=== PATIENT | female | born 1990 | race Caucasian/White ===

== ENCOUNTER 2016-07-21 13:10 | Emergency (ER) ==
[2016-07-21] MEDS ORDERED: PROTONIX IV ONE (13:20)
[2016-07-21] MEDS ORDERED: SODIUM CHLORIDE 0.9% INJ ONE (13:20)
[2016-07-21] MEDS ORDERED: NS 1,000 ML IV PRN (13:20)
[2016-07-21] MEDS ORDERED: NS 1,000 ML IV ONE (13:20)
[2016-07-21] MEDS ORDERED: ZOFRAN IV ONE (13:20)
--- NOTE | 2016-07-21 13:49 | PROVIDER DOCUMENTATION ---
HPI-Abdominal Pain/GI Problem <Erin Jordan X - Last Filed: 07/21/16 17:18> - General Source: patient, family - History of Present Illness-ABD Abdominal Pain Onset Location: reports: epigastric, periumbilical Quality of Pain: reports: aching Severity in ED: reports: moderate Onset/Duration: reports: other (1mo) Timing: reports: getting worse Rectal Bleeding: reports: bright red blood on paper, blood streaks on stool Rectal Pain: reports: none Emesis Description: reports: none Bruising or Bleeding Gums?: No Similar Symptoms Previously?: Yes Recently seen or treated by another doctor?: No <David Pastrana - Last Filed: 07/21/16 17:57> - General Chief Complaint: Vomiting Blood Stated Complaint: IVS-BLOOD IN STOOL Time Seen by Provider: 07/21/16 13:20 Allergies/Adverse Reactions: Patient Allergies Allergy/AdvReac Type Severity Reaction Status Date / Time ciprofloxacin [From Cipro] Allergy Intermediate RASH Verified 03/17/13 11:31 ciprofloxacin HCl * Allergy Intermediate RASH Verified 03/17/13 11:31 [From Cipro] ondansetron HCl * Allergy Intermediate RASH Verified 03/17/13 11:31 [From Zofran] iodine Allergy HIVES Verified 04/13/12 19:45 Home Medications: Hydrochlorothiazide 25 mg PO DAILY 04/13/12 Meloxicam [Mobic] 10 mg PO DAILY 04/13/12 Sertraline [Zoloft] 25 mg PO DAILY 04/13/12 Zolpidem [Ambien] 10 mg PO QHS 04/13/12 - History of Present Illness-ABD Nature of Presenting Problems: Diagnosed with IBS and Prolapsed colon in 2011 reports been having rectal bleeding and vomiting blood after eating x 1 month worsening past 1 week. Reports bright red and teaspoon full in vomit. Reports abd pain from epigastric to peribumbilical. (David Pastrana) Review of Systems - Adult - REVIEW OF SYSTEMS - ADULT Constitutional: denies: chills, fever, fatique Eyes: reports: no symptoms reported Ears, Nose, Mouth & Throat: reports: no symptoms reported Cardiovascular: denies: chest pain, irregular heart rate, orthopnea, syncope Respiratory: reports: no symptoms reported Gastrointestinal: reports: abdominal pain, hematemesis, rectal bleeding. denies : difficulty swallowing, frequent heartburn, nausea, vomiting Genitourinary: reports: no symptoms reported Musculoskeletal: reports: no symptoms reported Integumentary: reports: no symptoms reported Neurological: reports: no symptoms reported Psychiatric: reports: no symptoms reported Endocrine: reports: no symptoms reported Hematologic/Lymphatic: reports: no symptoms reported Allergic/Immunologic: reports: no symptoms reported All Other Systems: Reviewed and Negative <David Pastrana - Last Filed: 07/21/16 17:57> Past History - Adult - PAST MEDICAL HISTORY-ADULT Review of Records: reports: Nursing Assessment Review Major Childhood Illnesses: reports: denies history Cardiovascular: reports: HTN Respiratory: reports: asthma Gastrointestinal: reports: IBS, other (prolapse colon) - IMMUNIZATION STATUS Childhood Immunizations: See Nurse Assessment Flu Vaccine: See Nurse Assessment - FAMILY HISTORY Family History: reviewed, not pertinent - SOCIAL HISTORY Smoking: denies Substance Use: none/never <David Pastrana - Last Filed: 07/21/16 17:57> Physical Exam-General - PHYSICAL EXAM-ADULT Initial Vital Signs Reviewed: Yes - CONSTITUTIONAL General Appearance: appears well, alert, no apparent distress - EYES Eyes: PERRL/EOMI, pink conjunctivae - HEAD, EARS, NOSE, MOUTH & THROAT HENMT: normocephalic/atraumatic, moist mucous membranes, normal ENT inspection - NECK Neck: non-tender, full range of motion, supple, normal inspection - RESPIRATORY Respiratory: chest non-tender, lungs clear, normal breath sounds, no pleuratic chest pain, no respiratory distress, no accessory muscle use - CARDIOVASCULAR Cardiovascular: normal peripheral pulses, no edema, no gallop, no JVD, no murmur , tachycardia - GASTROINTESTINAL (ABDOMEN) Abdominal Exam: normal bowel sounds, soft, no organomegaly, no pulsatile mass, tenderness (ttp epigastric) - GENITOURINARY Rectal Exam: normal exam Hemoccult Exam: heme negative stool - LYMPHATIC Lymphatic: no adenopathy - MUSCULOSKELETAL Back Exam: normal inspection, no CVA tenderness, no vertebral tenderness Extremity: normal range of motion, non-tender, normal gait - SKIN Integumentary: normal color, normal turgor, warm/dry - NEUROLOGIC Neurologic: grossly normal, no motor/sensory deficits - PSYCHIATRIC Psych/Mental Status: normal mood/affect, normal thought content, normal thought process, oriented x 3 <Pastrana,Estoria - Last Filed: 07/21/16 17:57> Progress - REASSESSMENT Reassessment #1 Time Reassessed: 17:18 Status: improving (Pt has no GI bleeding episode after ER arrival. CT A+P with contrast was not able to be done due to her body weight. Pt understand this situation, and seh agrees with ther ER management plan.) <Erin Jordan X - Last Filed: 07/21/16 17:18> - XRAY 1 XRAY: Bilateral XRAY Study: Chest, Abdomen Impression: Normal XRAY Interpretation: NAD; <David Pastrana - Last Filed: 07/21/16 17:57> - PLAN OF CARE/RESULTS Progress/Plan/Lab Results: Orders Category Date Time Status Saline Loc DIRECTED Care 07/21/16 13:20 Active Saline Loc DIRECTED Care 07/21/16 13:20 Active NPO Diet 07/21/16 13:20 Active FLAT/UPRIGHT ABD/1 VIEW CHEST [RAD] Stat Exams 07/21/16 13:20 Ordered AMYLASE [CHEM] Stat Lab 07/21/16 13:20 Ordered CBC WITH ELECTRONIC DIFF [HEME] Stat Lab 07/21/16 13:20 Ordered COMPREHENSIVE METABOLIC PANEL [CHEM] Stat Lab 07/21/16 13:20 Ordered LIPASE [CHEM] Stat Lab 07/21/16 13:20 Ordered OCCULT BLOOD DIAGNOSTIC [STOOL] Stat Lab 07/21/16 13:22 Uncollected OCCULT BLOOD SCREEN STOOL PL Stat Lab 07/21/16 13:35 Ordered TEST-URINE [PREG] Stat Lab 07/21/16 13:[address] Or[address]IME WITH INR PL [COAG] Stat Lab 07/21/16 13:[address] [COAG] Stat Lab 07/21/16 13:[address] W/POSS RFLX CULT [URINALYSIS] Stat Lab 07/21/16 13:20 Ordered 0.9% Sodium Chloride Inj [Ns] 1,000 ml Med 07/21/16 13:20 Active IV 125 mls/hr 0.9% Sodium Chloride Inj [Ns] 1,000 ml Med 07/21/16 13:20 Active IV 999 mls/hr Ondansetron [Zofran] Med 07/21/16 13:20 Discontinued 8 mg IV NOW ONE Pantoprazole [Protonix] Med 07/21/16 13:20 Discontinued 40 mg IV NOW ONE Sodium Chloride 0.9% Med 07/21/16 13:20 Discontinued 10 ml INJ NOW ONE Vital Signs - 24 hr 07/21/16 13:13 Temperature 100.4 F H Pulse Rate 110 H Respiratory 20 Rate Blood Pressure 174/76 O2 Sat by Pulse 97 Oximetry Laboratory Tests 07/21/16 07/21/16 07/21/16 13:36 13:50 13:50 WBC 14.66 H RBC 4.86 Hgb 11.5 L Hct 37.4 MCV 77.0 L MCH 23.7 L MCHC 30.7 L RDW Std Deviation 18.5 H Plt Count 322 MPV 9.3 Immature Gran % (Auto) 0.3 Neut % (Auto) 69.6 Lymph % (Auto) 20.5 [place] % (Auto) 7.2 Eos % (Auto) 2.1 Baso % (Auto) 0.3 Immature Gran # (Auto) 0.04 Neut # (Auto) 10.20 H Lymph # (Auto) 3.00 [place] # (Auto) 1.06 H Eos # (Auto) 0.31 Baso # (Auto) 0.05 Sodium 139 Potassium 3.8 Chloride 100 Carbon Dioxide 27 Anion Gap 12 BUN 9 Creatinine 0.6 Estimated GFR/1.73 m2 > 60 BUN/Creatinine Ratio 15 Glucose 118 H Calculated Osmolality 277 Calcium 9.4 Total Bilirubin 0.20 AST 64 H ALT 34 Alkaline Phosphatase 59 Total Protein 7.7 Albumin 4.0 Globulin 4.0 Albumin/Globulin Ratio 1.0 Amylase 33 Lipase 23 Stool Occult Blood NEGATIVE unable to do a CT due to pt weight will do a KUB instead (David Pastrana) Departure <Erin Jordan X - Last Filed: 07/21/16 17:18> - Departure Time of Disposition Order: 17:50 Certified Medical Emergency: Emergent <David Pastrana - Last Filed: 07/21/16 17:57> - Departure DIAGNOSIS: Nausea GI bleed Qualifiers: GI bleed type/associated pathology: unspecified gastrointestinal hemorrhage type Qualified Code(s): K92.2 - Gastrointestinal hemorrhage, unspecified Abdominal pain Qualifiers: Abdominal location: unspecified location Qualified Code(s): R10.9 - Unspecified abdominal pain Disposition: HOME 01 Condition: Stable Additional Instructions: Follow up with GI ED Follow Up Instructions: You have been treated by a care provider in the Emergency Department. These instructions are being provided to you so you can have an understanding of how to care for yourself upon discharge. Upon discharge from the Emergency Department, you are responsible for making arrangements for follow-up care by a physician of your choice. Take all prescribed medications as directed. Return to the Emergency Department immediately for any new or worsening symptoms. You may call the Physician Referral phone number at [phone] to obtain a list of Physicians who are taking new patients. Referrals: None,PCP [Primary Care Provider] - Bakari Reid MD [STAFF PHYSICIAN] - Attestation - Scribe Verification/Attestation Scribe:: David Pastrana Acting as Scribe for:: Erin Jordan Scribe documention review:: This chart was documented by a scribe and accurately reflects the service the provider performed and the decisions made by the provider. <David Pastrana - Last Filed: 07/21/16 17:57> Physician Attestation
[2016-07-21 13:54] LABS: OCCULT BLOOD 1 NEGATIVE (NEGATIVE)
[2016-07-21 13:59] LABS: MANUAL DIFF NEEDED? NO
[2016-07-21 14:02] LABS: BASO% 0.3 % (0.0-0.8); EOS# 0.31 X1000 (0.0-0.7); EOS% 2.1 % (0.0-10.0); HEMATOCRIT 37.4 % (37.0-47.0); HEMOGLOBIN 11.5 g/dL (12.0-16.0); IMM GRAN# 0.04 X1000 (0.0-0.04); IMM GRAN% 0.3 % (0.0-0.5); LYMPH% 20.5 % (20.5-51.1); MCH 23.7 PG (27-31); MCHC 30.7 g/dL (33-37); MONO# 1.06 X1000 (0.11-0.59); MONO% 7.2 % (1.7-9.3); MPV 9.3 FL (7.4-10.4); NEUT% 69.6 % (42.2-75.2); PLT 322 X1000 (130-400); RBC 4.86 XMIL (4.2-5.4)
[2016-07-21 14:28] LABS: AGAP 12; ALKALINE PHOSPHATASE 59 U/L (32-104); AMYLASE 33 U/L (20-200); BUN 9 mg/dL (8-22); CALCIUM 9.4 mg/dL (8.8-10.2); CHLORIDE 100 mmol/L (98-107); COSMO 277; GOT 64 U/L (10-30); GPT 34 U/L (10-36); LIPASE 23 U/L (13-60); POTASSIUM 3.8 mmol/L (3.5-5.1); SODIUM 139 mmol/L (136-145); TCO2 27 mmol/L (25-35); TOTAL PROTEIN 7.7 g/dL (6.3-8.3)
[2016-07-21 14:31] LABS: INR 1.01 (0.86-1.15); PROTIME 13.6 Seconds (12.1-15.5)
[2016-07-21 14:32] LABS: PTT PL 28.6 Seconds (22.6-43.9)
[2016-07-21 17:00] LABS: URINE CULTURE PL NEEDED? NO; URINE SOURCE CLEAN CATCH
[2016-07-21 17:06] LABS: HEMATOCRIT 36.4 % (37.0-47.0); HEMOGLOBIN 11.3 g/dL (12.0-16.0)
[2016-07-21 17:32] LABS: BILIRUBIN URINE NEGATIVE (NEGATIVE); BLOOD URINE NEGATIVE (NEGATIVE); CLARITY SL. CLOUDY (CLEAR); COLOR YELLOW; GLUCOSE URINE NEGATIVE (NEGATIVE); LEUKOCYTES URINE TRACE (NEGATIVE); NITRITE URINE NEGATIVE (NEGATIVE); PROTEIN URINE NEGATIVE (NEGATIVE); UROBILINOGEN URINE NORMAL
[2016-07-21 17:33] LABS: URINE EPITHELIAL CELLS <10 /HPF (<10); URINE WBC <10 /HPF (<10)
[2016-07-21] MEDS ORDERED: G.I. COCKTAIL PO ONE (17:59)
[2016-07-21] MEDS ORDERED: NORCO-10 PO ONE (17:59)
[2016-07-21 18:58] VITALS: BP 130/78
--- NOTE | 2016-07-22 10:07 | Diag Imaging Result Document ---
PROCEDURE NAME: FLAT/UPRIGHT ABD/1 VIEW CHEST - 07/21/2016 PLAIN RADIOGRAPH OF THE CHEST AND ABDOMEN, 4 VIEWS: COMPARISON: Chest radiograph dated 08/14/2011. FINDINGS: There are unremarkable bowel gas and stool patterns. There is no evidence of bowel obstruction. There is no evidence of large volume free abdominal gas. There is no discrete organomegaly. The lungs are grossly clear. The cardiomediastinal silhouette and upper airway are grossly unremarkable. IMPRESSION: No evidence of acute chest or abdominal pathology.
== END 2016-07-21 18:30 | disposition home or self-care (01) ==
LOC: P.ED 13:10
DX: K92.2 Gastrointestinal hemorrhage, unspecified (principal); R11.0 Nausea; R10.13 Epigastric pain; K92.0 Hematemesis; K92.1 Melena; I10 Essential (primary) hypertension; K58.9 Irritable bowel syndrome, unspecified; R00.0 Tachycardia, unspecified; Z79.899 Other long term (current) drug therapy; Z79.1 Long term (current) use of non-steroidal anti-inflammatories (NSAID)
CPT/HCPCS: 74022; 80053; 81001; 81025; 82150; 82270; 83690; 85014; 85018; 85025; 85610; 85730; 87804; 96361; 96374; 96375; C9113; J2405; J7030; S0164